=== PATIENT | female | born 1995 | race Caucasian/White ===

== ENCOUNTER 2020-04-09 12:59 | Emergency (ER) | payer OTHER ==
[~2020-04-09] VITALS: Ht 167.6 cm; Wt 59.4 kg
[~2020-04-09 12:59] MED LIST: AMOX1TAB12 PO; CATAFLAM50 MG PO; MOTRIN800 MG PO; ORPH100T PO
[2020-04-09] MEDS ORDERED: ONE A DAY PREN1 EACH (13:39)
[2020-04-09] MEDS ORDERED: ZITHROMAX200 MG PO (17:17)
== END 2020-04-09 17:59 | disposition home or self-care (01) ==
LOC: ER 12:59
DX: O26.891 Other specified pregnancy related conditions, first trimester (principal); R10.2 Pelvic and perineal pain; O26.851 Spotting complicating pregnancy, first trimester; O36.80X1 Pregnancy with inconclusive fetal viability, fetus 1

== ENCOUNTER 2020-04-13 15:20 | Emergency (ER) | payer OTHER ==
[~2020-04-13] VITALS: Ht 167.6 cm; Wt 59.4 kg
[~2020-04-13 15:20] MED LIST changes: +ONE A DAY PREN1 EACH; +ZITHROMAX200 MG PO
== END 2020-04-13 19:06 | disposition home or self-care (01) ==
LOC: ER 15:20
DX: O98.812 Other maternal infectious and parasitic diseases complicating pregnancy, second trimester (principal); B37.3 Candidiasis of vulva and vagina; O46.8X2 Other antepartum hemorrhage, second trimester; Z3A.14 14 weeks gestation of pregnancy

== ENCOUNTER → 2020-05-28 | Outpatient (CLI) | payer OTHER | END | disposition home or self-care (01) | LOC: PRENATAL 08:00 | PROVIDERS: ATTEND Obstetrics & Gynecology Maternal & Fetal Medicine | DX: O35.0XX1 Maternal care for (suspected) central nervous system malformation in fetus, fetus 1 (principal); O99.89 Other specified diseases and conditions complicating pregnancy, childbirth and the puerperium; O44.02 Complete placenta previa NOS or without hemorrhage, second trimester; O35.3XX1 Maternal care for (suspected) damage to fetus from viral disease in mother, fetus 1; O98.512 Other viral diseases complicating pregnancy, second trimester; Z36.89 Encounter for other specified antenatal screening; Z3A.20 20 weeks gestation of pregnancy ==

== ENCOUNTER → 2020-07-30 | Outpatient (CLI) | payer OTHER | END | disposition home or self-care (01) | LOC: PRENATAL 09:00 | PROVIDERS: ATTEND Obstetrics & Gynecology Maternal & Fetal Medicine | DX: O26.843 Uterine size-date discrepancy, third trimester (principal); Z36.89 Encounter for other specified antenatal screening; Z3A.30 30 weeks gestation of pregnancy ==

== ENCOUNTER 2020-10-02 07:00 | Inpatient (IN) | payer OTHER ==
[~2020-10-02] VITALS: Ht 167.6 cm; Wt 80.7 kg
[2020-10-15] MEDS ORDERED: VALTREX1000 MG PO (04:28)
== END 2020-10-17 11:52 | disposition home or self-care (01) | DRG 807 ==
LOC: OB/GYN 10-08 12:15 → LDR 10-15 03:24 → OB/GYN 10-15 19:32
PROVIDERS: ADMIT Specialist; ATTEND Specialist
PROC: 10E0XZZ Delivery of Products of Conception, External Approach (ICD-10-PCS; principal; 2020-10-15)
PROC: 10907ZC Drainage of Amniotic Fluid, Therapeutic from Products of Conception, Via Natural or Artificial Opening (ICD-10-PCS; 2020-10-15)
PROC: 3E033VJ Introduction of Other Hormone into Peripheral Vein, Percutaneous Approach (ICD-10-PCS; 2020-10-15)
PROC: 4A1HXFZ Monitoring of Products of Conception, Cardiac Rhythm, External Approach (ICD-10-PCS; 2020-10-15)
PROC: 0UQMXZZ Repair Vulva, External Approach (ICD-10-PCS; 2020-10-15)
DX: O99.824 Streptococcus B carrier state complicating childbirth (principal); Z37.0 Single live birth; Z3A.40 40 weeks gestation of pregnancy; Z20.828 Contact with and (suspected) exposure to other viral communicable diseases

== ENCOUNTER 2020-10-13 07:19 | Outpatient (CLI) | payer OTHER | END 2020-10-13 09:34 | disposition home or self-care (01) | LOC: NST 07:19 → LDR 07:35 → NST 09:34 | PROVIDERS: ATTEND Specialist | DX: Z34.83 Encounter for supervision of other normal pregnancy, third trimester (principal) ==

== ENCOUNTER 2021-04-17 10:55 | Emergency (ER) | payer OTHER ==
[~2021-04-17] VITALS: Ht 167.6 cm; Wt 68.0 kg
[~2021-04-17 10:55] MED LIST changes: +VALTREX1000 MG PO
[2021-04-17] MEDS ORDERED: ZITHROMAX500 MG PO (14:03)
== END 2021-04-17 14:08 | disposition home or self-care (01) ==
LOC: ER 10:55
DX: B34.9 Viral infection, unspecified (principal); B96.0 Mycoplasma pneumoniae [M. pneumoniae] as the cause of diseases classified elsewhere; Z11.52 Encounter for screening for COVID-19

== ENCOUNTER → 2021-05-12 | Emergency (ER) | payer OTHER ==
[~2021-05-12] VITALS: Ht 170.2 cm; Wt 68.0 kg
[~2021-05-12] MED LIST changes: +AMOX1TAB5 PO; +ZITHROMAX500 MG PO
== END | disposition home or self-care (01) ==
LOC: ER 21:48
DX: H66.91 Otitis media, unspecified, right ear (principal); H92.01 Otalgia, right ear

== ENCOUNTER 2021-11-13 11:29 | Emergency (ER) | payer OTHER ==
[~2021-11-13] VITALS: Ht 167.6 cm; Wt 61.7 kg
== END 2021-11-13 16:23 | disposition home or self-care (01) ==
LOC: ER 11:29
DX: O26.892 Other specified pregnancy related conditions, second trimester (principal); R10.2 Pelvic and perineal pain; O26.852 Spotting complicating pregnancy, second trimester; O26.842 Uterine size-date discrepancy, second trimester; Z3A.18 18 weeks gestation of pregnancy

== ENCOUNTER 2021-12-04 14:08 | Outpatient (CLI) | payer OTHER | END 2021-12-04 15:45 | disposition home or self-care (01) | LOC: PRENATAL 14:08 | PROVIDERS: ATTEND Obstetrics & Gynecology Maternal & Fetal Medicine | DX: O35.0XX0 Maternal care for (suspected) central nervous system malformation in fetus, not applicable or unspecified (principal); O35.3XX0 Maternal care for (suspected) damage to fetus from viral disease in mother, not applicable or unspecified ==

== ENCOUNTER 2021-12-12 22:37 | Outpatient (CLI) | payer OTHER ==
[2021-12-12] MEDS ORDERED: PRENATAL + DHA1 EAC1 PO (22:57)
== END 2021-12-13 09:43 | disposition home or self-care (01) ==
LOC: OBS/DEL 22:37
PROVIDERS: ATTEND Obstetrics & Gynecology
DX: O60.02 Preterm labor without delivery, second trimester (principal); Z3A.22 22 weeks gestation of pregnancy

== ENCOUNTER 2022-01-20 02:41 | Emergency (ER) | payer OTHER ==
[~2022-01-20] VITALS: Ht 167.6 cm; Wt 66.2 kg
[~2022-01-20 02:41] MED LIST changes: +PRENATAL + DHA1 EAC1 PO
== END 2022-01-20 04:10 ==
LOC: ER 02:41
DX: O26.893 Other specified pregnancy related conditions, third trimester (principal); Z3A.29 29 weeks gestation of pregnancy; K08.89 Other specified disorders of teeth and supporting structures; Z88.8 Allergy status to other drugs, medicaments and biological substances; Z91.013 Allergy to seafood

== ENCOUNTER 2022-04-03 13:40 | Inpatient (IN) | payer OTHER ==
[~2022-04-03] VITALS: Ht 167.6 cm; Wt 78.9 kg
[2022-04-03] MEDS ORDERED: VALTREX1000 MG PO (14:45)
== END 2022-04-05 13:10 | disposition home or self-care (01) | DRG 807 ==
LOC: OB/GYN 13:40 → LDR 13:40 → OB/GYN 20:50
PROVIDERS: ADMIT Obstetrics & Gynecology; ATTEND Obstetrics & Gynecology
PROC: 10E0XZZ Delivery of Products of Conception, External Approach (ICD-10-PCS; principal; 2022-04-03)
PROC: 4A1HXCZ Monitoring of Products of Conception, Cardiac Rate, External Approach (ICD-10-PCS; 2022-04-03)
DX: O80 Encounter for full-term uncomplicated delivery (principal); Z37.0 Single live birth; Z3A.38 38 weeks gestation of pregnancy; Z20.822 Contact with and (suspected) exposure to COVID-19

== ENCOUNTER 2023-10-13 09:52 | Emergency (ER) | payer OTHER ==
[~2023-10-13] VITALS: Ht 167.6 cm; Wt 66.2 kg
[2023-10-13 12:15] LABS: HEMATOCRIT 35.3 % (36.0-45.00); HEMOGLOBIN 11.8 g/dL (12.0-15.00); MEAN CELL VOLUME 79.1 fL (80.00-100.00); MEAN CORPUSCULAR HEMOGLOBIN 26.6 pg (27.00-32.0); MEAN CORPUSCULAR HGB CONC 33.5 g/dl (32.0-36.0); PLATELET COUNT 228 K/uL (150-450); RED BLOOD COUNT 4.46 M/uL (4.00-6.00)
[2023-10-13 12:53] LABS: ALBUMIN 4.4 gm/dL (3.4-5.0); BILIRUBIN TOTAL 0.86 mg/dL (0.3-1.2); CALCIUM 9.4 mg/dL (8.5-10.1); CREATININE SERUM 0.68 mg/dL (0.55-1.02); GFR 102.29; GLOBULINA 4.3 G/DL (2.4-3.5); POTASSIUM 3.54 mEq/L (3.5-5.1); TOTAL PROTEIN 8.7 gm/dL (6.4-8.2)
[2023-10-13 17:52] LABS: PH,URINE 6.5 (5.0-8.0); URINE APPEARANCE Clear; URINE BILIRRUBIN Negative (NEGATIVE); URINE BLOOD Negative; URINE COLOR Yellow; URINE GLUCOSE Negative (NEGATIVE); URINE LEUKOCYTE Negative; URINE NITRATE Negative; URINE PROTEIN Trace (NEGATIVE)
[2023-10-13 17:53] LABS: URINE BACTERIA 1563.2 uL (0.0-1933); URINE EPITHELIAL CELLS 23.4 uL (0.0-38.8); URINE RBC 15.9 uL (0.0-20.8); URINE WBC 10.9 uL (0.0-23.2)
[2023-10-13] MEDS ORDERED: PEPCID AC20 MG PO (18:21)
[2023-10-13] MEDS ORDERED: ZOFRAN8 MG PO (18:21)
== END 2023-10-13 20:22 | disposition home or self-care (01) ==
LOC: ER 09:52
PROVIDERS: Emergency Medicine
DX: R10.9 Unspecified abdominal pain (principal); K52.9 Noninfective gastroenteritis and colitis, unspecified; Z88.8 Allergy status to other drugs, medicaments and biological substances; Z91.013 Allergy to seafood
CPT/HCPCS: 36415; 74177; Q9965